=== PATIENT | male | born 1940 | race Caucasian/White ===

== ENCOUNTER 2016-12-27 09:25 | Emergency (ER) | payer MEDICARE ==
--- NOTE | 2016-12-27 09:55 | EDM.PDOC ---
ED HPI GENERAL MEDICAL PROBLEM - General Chief Complaint: Lower Extremity Injury/Pain Stated Complaint: RT KNEE INJURY Time Seen by Provider: 12/27/16 09:40 Source of Information: Reports: Patient, Family History Limitations: Reports: No Limitations - History of Present Illness INITIAL COMMENTS - FREE TEXT/NARRATIVE: The patient fed his horses and he was walking by the barn and a young dog he has was playing around and he ran into the back of his right knee and knocked him to the ground. He hit his head but he had no LOC and he had no headache. He denies chest pain or abdominal pain. He has pain and deformity to his right knee. He says his knee does not work right. He has a deformity just proximal to the patella. Onset: Sudden Duration: Minutes: Location: Reports: Lower Extremity, Right (Knee) Quality: Reports: Sharp Severity: Moderate Improves with: Reports: Immobilization Worsens with: Reports: Movement Context: Reports: Activity (He was hit in the back of the knee by his dog) Associated Symptoms: Reports: No Other Symptoms Right Knee Pain Score (Numeric/FACES): 0 - Related Data Allergies Allergy/AdvReac Type Severity Reaction Status Date / Time No Known Allergies Allergy Verified 12/27/16 09:36 Home Meds: Home Meds . [Unable to Verify Home Med List] 12/27/16 [History] Past Medical History Cardiovascular History: Reports: High Cholesterol, Hypertension Respiratory History: Reports: COPD Social & Family History - Tobacco Use Smoking Status *Q: Never Smoker - Caffeine Use Caffeine Use: Reports: Coffee - Recreational Drug Use Recreational Drug Use: No Review of Systems - Review of Systems Review Of Systems: See Below Constitutional: Reports: No Symptoms Eyes: Reports: No Symptoms Ears: Reports: No Symptoms Nose: Reports: No Symptoms Mouth/Throat: Reports: No Symptoms Respiratory: Reports: No Symptoms Cardiovascular: Reports: No Symptoms GI/Abdominal: Reports: No Symptoms Genitourinary: Reports: No Symptoms Musculoskeletal: Reports: Other (Pain and deformity to the right knee) Skin: Reports: No Symptoms Neurological: Reports: No Symptoms ED EXAM, GENERAL - Physical Exam Exam: See Below Exam Limited By: No Limitations General Appearance: Alert, No Apparent Distress Ears: Normal External Exam Nose: Normal Inspection Head: Atraumatic, Normocephalic Neck: Normal Inspection Respiratory/Chest: No Respiratory Distress, Lungs Clear, Normal Breath Sounds Cardiovascular: Regular Rate, Rhythm, No Edema, No Murmur GI/Abdominal: Soft, Non-Tender, No Organomegaly, No Mass Extremities: Other (Pain upon palpation to the knee just proximal to the patella. There is a palpable deficit where the patellar tendon should be. He cannot lift his lef off of the bed.) Course - Vital Signs Last Recorded V/S: Last Vital Signs Temp 98.3 F 12/27/16 09:28 Pulse 100 12/27/16 09:28 Resp 18 12/27/16 09:28 BP Pulse Ox 97 12/27/16 09:28 - Orders/Labs/Meds Orders: Active Orders 24 hr Category Date Time Status Knee Min 4V Rt [CR] Stat Exams 12/27/16 09:48 Taken - Re-Assessments/Exams Free Text/Narrative Re-Assessment/Exam: 12/27/16 09:54 I have ordered an x-ray of his knee. 12/27/16 10:35 The x-ray shows a chip fracture and patellar tendon tear. I will put him in a knee immobilizer and crutches. I will have him follow up with Dr Hernandez next week. 12/27/16 10:42 Departure - Departure Time of Disposition: 10:40 Disposition: Home, Self-Care 01 Condition: Good Clinical Impression: Fall Qualifiers: Encounter type: initial encounter Qualified Code(s): W19.XXXA - Unspecified fall, initial encounter Patellar tendon rupture Qualifiers: Encounter type: initial encounter Laterality: right Qualified Code(s): S86.811A - Strain of other muscle(s) and tendon(s) at lower leg level, right leg , initial encounter Patella fracture Qualifiers: Encounter type: initial encounter Fracture type: closed Fracture morphology: other fracture Laterality: right Qualified Code(s): S82.091A - Other fracture of right patella, initial encounter for closed fracture - Discharge Information Referrals: Jensen Gallardo MD [Primary Care Provider] - Thomas Hernandez MD [Physician] - 1 Week Forms: ED Department Discharge Additional Instructions: Ice your knee for 15 minutes every other hour while awake for 2 days. Elevate your knee above your heart as much as you can for the next couple of days to reduce the swelling. Take tylenol or motrin for pain. Follow up with Dr Olvera next week. - My Orders Last 24 Hours: My Active Orders 12/27/16 09:48 Knee Min 4V Rt [CR] Stat - Assessment/Plan Last 24 Hours: My Active Orders 12/27/16 09:48 Knee Min 4V Rt [CR] Stat
--- NOTE | 2016-12-28 07:38 | CR ---
Right knee: Four views of the right knee were obtained. Comparison: No prior knee exam. Mild medial joint space narrowing is seen. Lateral joint space is preserved. Minimal calcification is noted anteriorly within Hoffa's fat pad. Calcification is noted within the suprapatellar bursa. Spur noted at the attachment of the quadriceps tendon to the patella. Minimal joint effusion is seen. No acute bony abnormality is appreciated. Impression: 1. Degenerative change and other incidental findings. No acute bony abnormality is seen. If patellar injury needs to be confirmed, MRI would be helpful. Diagnostic code #3
== END 2016-12-27 10:45 | disposition home or self-care (01) ==
LOC: JD.ED 09:25
DX: S82.091A Other fracture of right patella, initial encounter for closed fracture (principal); S86.811A Strain of other muscle(s) and tendon(s) at lower leg level, right leg, initial encounter; I10 Essential (primary) hypertension; W01.10XA Fall on same level from slipping, tripping and stumbling with subsequent striking against unspecified object, initial encounter
CPT/HCPCS: 73564-26-RT; 73564-RT; 99283

== ENCOUNTER 2017-01-04 06:54 | Day surgery (SDC) | payer MEDICARE ==
[~2017-01-04 06:54] MED LIST: Lidocaine 1%/Sod Bicarbonate in NS 8.4% 1 ML Syringe IV PRN; Sodium Chloride 0.9% 10 ML Syringe FLUSH PRN
[2017-01-04] MEDS ORDERED: Ondansetron 4 MG/2 ML SDV ONE (07:06)
[2017-01-04] MEDS ORDERED: fentaNYL 250 MCG/5 ML SDV ONE (07:06)
[2017-01-04] MEDS ORDERED: Rocuronium 50 MG/5 ML Vial ONE (07:06)
[2017-01-04] MEDS ORDERED: Propofol 200 MG/20 ML SDV ONE ×2 (07:06→08:53)
[2017-01-04] MEDS ORDERED: ceFAZolin 1 GM Vial ONE (07:06)
[2017-01-04] MEDS: Lactated Ringers 1,000 ML IV SCH ×2 (07:20→10:26)
--- NOTE | 2017-01-04 07:25 | PCM.PREANE ---
Preanesthetic Assessment - Anesthesia/Transfusion/Family Hx Anesthesia History: Prior Anesthesia Without Reaction Type of Anesthesia Reaction: Urinary Retention Family History of Anesthesia Reaction: No Transfusion History: No Prior Transfusion(s) - Review of Systems General: No Symptoms, Other (difficulty urinating) Pulmonary: Other (COPD, BENJI does not wear CPAP) Cardiovascular: Other (HTN, Increased cholesterol) Gastrointestinal: Other (on meds for reflux, denies reflux at this time) Neurological: No Symptoms - Physical Assessment NPO Status Date: 01/04/17 NPO Status Time: 00:01 Pulse: 85 O2 Sat by Pulse Oximetry: 95 Respiratory Rate: 16 Blood Pressure: 145/77 Temperature: 36.8 C Weight: 75.7 kg ASA Class: 3 Mental Status: Alert & Oriented x3 Airway Class: Mallampati = 2 Dentition: Reports: Normal Dentition, Implants (3) Thyro-Mental Finger Breadths: 3 Mouth Opening Finger Breadths: 3 ROM/Head Extension: Full Lungs: Clear to Auscultation, Normal Respiratory Effort Cardiovascular: Regular Rate, Regular Rhythm, Other - Imaging/EKG Impressions: sinus rhythm with abnormal r wave progression no ischemic changes, no LVH, qt WNL - Allergies Allergies/Adverse Reactions: Allergies Allergy/AdvReac Type Severity Reaction Status Date / Time No Known Allergies Allergy Verified 12/27/16 09:36 - Blood Blood Available: No Product(s) Available: None - Anesthesia Plan Pre-Op Medication Ordered: None - Acknowledgements Anesthesia Type Planned: General Anesthesia Pt an Appropriate Candidate for the Planned Anesthesia: Yes Alternatives and Risks of Anesthesia Discussed w Pt/Guardian: Yes Pt/Guardian Understands and Agrees with Anesthesia Plan: Yes PreAnesthesia Questionnaire Cardiovascular History: Reports: High Cholesterol, Hypertension Respiratory History: Reports: COPD Gastrointestinal History: Reports: Diverticulosis, GERD Genitourinary History: Reports: Chronic Renal Insuffiency, Prostate Disorder Other Genitourinary History: urinary retention after spinal anesthesia in the past Musculoskeletal History: Reports: Arthritis - Past Surgical History Musculoskeletal Surgical History: Reports: Arthroscopic Knee Other Musculoskeletal Surgeries/Procedures:: subachromial impingement, degenerative disc disease of lower back. right knee quadracep tendon rupture. - SUBSTANCE USE Smoking Status *Q: Former Smoker Tobacco Use Within Last Twelve Months: Cigarettes Days Per Week of Alcohol Use: 7 Number of Drinks Per Day: 2 Total Drinks Per Week: 14 Recreational Drug Use History: No - HOME MEDS Home Medications: Home Meds Fluticasone/Salmeterol [Advair 250-50 Diskus] 1 each IH BID 01/01/17 [History] Glucosamine [Glucosamine Sulfate] 2 tab PO DAILY 01/01/17 [History] Hydrochlorothiazide 25 mg PO DAILY 01/01/17 [History] Multivitamin [Multivitamins] 1 tab PO DAILY 01/01/17 [History] Omeprazole 40 mg PO DAILY 01/01/17 [History] Simvastatin [Zocor] 40 mg PO DAILY 01/01/17 [History] Acetaminophen/HYDROcodone [[place] 325-5 MG] 1 - 2 tab PO Q6H PRN #40 tablet 01/04 [Rx] Cyclobenzaprine [Flexeril] 5 mg PO BID PRN #40 tablet 01/04/17 [Rx] Aspirin 325 mg PO BID #84 tablet 01/05/17 [Rx] - CURRENT (IN HOUSE) MEDS Current Meds: Current Medications Lactated Ringer's (Ringers, Lactated) 1,000 mls @ 125 mls/hr IV ASDIRECTED VIOLETA Lidocaine/Sodium Bicarbonate (Buffered Lidocaine 1% In Ns 8.4%) 0.25 ml IV ONETIME PRN PRN Reason: Prior to IV Start Sodium Chloride (Saline Flush) 10 ml FLUSH ASDIRECTED PRN PRN Reason: Keep Vein Open Discontinued Medications Cefazolin Sodium (Ancef) Confirm Administered Dose 2 gm .ROUTE .STK-MED ONE Stop: 01/04/17 07:07 Fentanyl (Sublimaze) Confirm Administered Dose 250 mcg .ROUTE .STK-MED ONE Stop: 01/04/17 07:07 Ondansetron HCl (Zofran) Confirm Administered Dose 4 mg .ROUTE .STK-MED ONE Stop: 01/04/17 07:07 Propofol (Diprivan 20 Ml) Confirm Administered Dose 200 mg .ROUTE .STK-MED ONE Stop: 01/04/17 07:07 Rocuronium Raven (Zemuron) Confirm Administered Dose 50 mg .ROUTE .STK-MED ONE Stop: 01/04/17 07:07
[2017-01-04] MEDS: Bupivacaine 0.25% 30 ML SDV ONE ×2 (09:21→09:55)
[2017-01-04] MEDS ORDERED: fentaNYL 100 MCG/2 ML SDV ONE (09:39)
[2017-01-04] MEDS ORDERED: Albuterol 0.083% 2.5 MG/3 ML Neb Soln NEB ONE (09:48)
--- NOTE | 2017-01-04 10:25 | PCM.POSTAN ---
POST ANESTHESIA ASSESSMENT - MENTAL STATUS Mental Status: Alert, Oriented - VITAL SIGNS Pulse Rate: 79 SaO2: 99 Resp Rate: 14 Blood Pressure: 152/79 Temperature: 36.8 C - RESPIRATORY Respiratory Status: Respiratory Rate WNL, Airway Patent, O2 Saturation Stable, Supplemental Oxygen - CARDIOVASCULAR CV Status: Pulse Rate WNL, Blood Pressure Stable - GASTROINTESTINAL GI Status: No Symptoms - PAIN Pain Score: 0 - POST OP HYDRATION Hydration Status: Adequate & Stable
[2017-01-04] MEDS: fentaNYL 100 MCG/2 ML SDV IVPUSH PRN ×3 (10:29→11:22)
--- NOTE | 2017-01-04 10:50 | CR ---
Right knee: Five fluoroscopic spot views were obtained of the right knee utilizing C-arm device. Study shows pins crossing the patella. Fluoroscopy time given as 26.4 seconds. Impression: 1. Operative study. Diagnostic code #2
[2017-01-04] MEDS: HYDROmorphone 0.5 MG/0.5 ML Syringe IVPUSH PRN ×2 (10:51→11:07)
[2017-01-04] MEDS ORDERED: Acetaminophen/HYDROcodone 325-5 MG Tab PO ONE (12:15)
--- NOTE | 2017-01-12 10:10 | PCM.OPNOTE ---
- General Post-Op/Procedure Note Date of Surgery/Procedure: 01/04/17 Operative Procedure(s): right quadriceps tendon repair Pre Op Diagnosis: right quadriceps tendon rupture Post-Op Diagnosis: Same Anesthesia Technique: General ET Tube, Local Primary Surgeon: Thomas Hernandez Anesthesia Provider: Antonina Fuentes Nutrition Services Associate: Mirtha Mcknight EBL in mLs: 50 Complications: None Condition: Good
--- NOTE | 2017-01-12 12:17 | OR ---
DATE OF OPERATION: 01/04/2017 SURGEON: Thomas Hernandez MD OPERATION PERFORMED: Right quadriceps tendon repair. PREOPERATIVE DIAGNOSIS: Right quadriceps tendon rupture. POSTOPERATIVE DIAGNOSIS: Right quadriceps tendon rupture. ANESTHESIA: General endotracheal intubation with local. ANESTHESIA PROVIDER: Dr. Antonina Fuentes. DISTANCE EDUCATION COORDINATOR: Mirtha Mcknight PA-C. ESTIMATED BLOOD LOSS: 50 mL. COMPLICATIONS: None. CONDITION: Stable. DESCRIPTION OF PROCEDURE: The patient was identified in the preoperative holding area. Proper site was marked and identified by the surgeon. The patient was taken back to the operative theater where after adequate anesthesia, the patient had a nonsterile tourniquet applied to the right lower extremity, was then sterilely prepped and draped in the usual sterile fashion. OR time-out was performed. The patient received 2 g IV Ancef. Right lower extremity was then exsanguinated. Tourniquet was insufflated to 150 mmHg. Standard anterior incision was made. This was taken down to the quadriceps tendon where there was noted to be a large tear of the quadriceps tendon of the proximal pole of the patella. The patient had a large effusion, which was evacuated from the knee at this time. All hematoma was removed as well at this time. Adequate saline was then irrigated through the joint. At this time, the ends of the tendon and the patella were debrided to make sure that viable tissue was there. At this time, a #5 FiberWire was used with a modified Krackow stitch through the quadriceps tendon on both the lateral and medial sides. Two 0.06 K-wires were then placed in a parallel fashion through the patella and were found to be in adequate position on both AP and lateral views. Hewson suture passer was then used for shuttling a 0 Vicryl from the inferior pole to superior pole of the patella and then the FiberWire, and these were placed through this tunnel to the inferior pole of the patella. A Lashonda clamp was then used to bring both limbs as the FiberWire out through the same limb underneath the patellar tendon. This was then tied and the quadriceps tendon was noted to have adequate closure of the previous defect. The knot was then buried below the patellar tendon. Another #5 FiberWire was then used for [id number] simple sutures at intervals through the quadriceps tendon for a double repair. At this time, we did leave the lateral retinaculum unrepaired to make sure there was no patellar maltracking. At this time, adequate saline was irrigated through the wound. It was found to be an adequate repair. A 2-0 Vicryl was used subcutaneously, and joselyn were used for the skin. The patient had a sterile soft dressing applied and was sent to PACU in stable condition with a hinged knee brace locked in extension. MMODAL /[id number]
== END 2017-01-04 14:33 | disposition home or self-care (01) ==
LOC: JD.SDS 06:54
PROVIDERS: ATTEND Orthopaedic Surgery
DX: M66.851 Spontaneous rupture of other tendons, right thigh (principal); J44.9 Chronic obstructive pulmonary disease, unspecified; E78.2 Mixed hyperlipidemia; N40.1 Benign prostatic hyperplasia with lower urinary tract symptoms; E87.6 Hypokalemia; N28.9 Disorder of kidney and ureter, unspecified; K21.9 Gastro-esophageal reflux disease without esophagitis; I10 Essential (primary) hypertension; Z79.82 Long term (current) use of aspirin; Z79.899 Other long term (current) drug therapy; Z88.8 Allergy status to other drugs, medicaments and biological substances; Z87.891 Personal history of nicotine dependence; Z98.890 Other specified postprocedural states
CPT/HCPCS: 27385; 36415; 76000; 80048; 93005; 94640; A9270; J0690; J1170; J2405; J3010; J3490; J7120; 01320; J2704

== ENCOUNTER → 2024-05-25 | Day surgery (SDC) | payer MEDICARE, OTHER ==
[2024-05-25] MEDS: Lidocaine 1% 10 ML MDV ONE (07:22)
[2024-05-25] MEDS: Bupivacaine 0.25% 10 ML SDV ONE (07:22)
[2024-05-25] MEDS: Triamcinolone Acetonide 40 MG/ML 1 ML SDV ONE (07:27)
== END | disposition home or self-care (01) ==
LOC: JD.SDS 06:15
PROVIDERS: ATTEND Orthopaedic Surgery
DX: G56.12 Other lesions of median nerve, left upper limb (principal); G56.02 Carpal tunnel syndrome, left upper limb; M19.042 Primary osteoarthritis, left hand; I10 Essential (primary) hypertension; E78.2 Mixed hyperlipidemia; J44.9 Chronic obstructive pulmonary disease, unspecified; K21.9 Gastro-esophageal reflux disease without esophagitis; Z87.891 Personal history of nicotine dependence; Z79.899 Other long term (current) drug therapy; Z88.8 Allergy status to other drugs, medicaments and biological substances
CPT/HCPCS: 20600; 64721; J0665; J2003; J3301